=== PATIENT | female | born 2005 | race Caucasian/White ===

== ENCOUNTER 2025-04-30 12:16 | Emergency (ER) | payer MEDICAID, SELFPAY ==
[2025-04-30 13:14] VITALS: BP 120/69; PULSE 97; RESP 18; TEMP 36.4; O2SAT 97; BMI 24.3
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
[2025-04-30 17:16] VITALS: BP 98/54; PULSE 63; RESP 14; TEMP 36.4; O2SAT 98
[2025-04-30 17:33] LABS: Appearance Urine Clear; Color Urine Yellow; Glucose Urine UA Negative (Negative); Leukocyte Esterase Urine Trace (Negative); Nitrite Urine Negative (Negative); Specific Gravity - Urine 1.025 (1.005-1.025); UMIC TRIGGER UACC YES; Urine Blood Negative (Negative); Urine Ketones Trace mg/dL (Negative); Urine Protein Trace mg/dL (Neg-Trace)
[2025-04-30 17:36] LABS: UPreg QC Valid YES; Urine Pregnancy NEGATIVE (NEGATIVE)
[2025-04-30 17:38] LABS: Bacteria Urine None Seen (None Seen); Hyaline Casts Urine 0-2 /LPF (0-2); RBC Urine 0-2 /HPF (0-2); WBC Urine 0-5 /HPF (0-5)
[2025-04-30] MEDS: Bacitracin Oint 0.9 GM PACKET 10 APPL TOPICAL (17:40)
[2025-04-30] MEDS: Acetaminophen 325 MG TABLET 975 MG PO (17:40)
[2025-04-30] MEDS: Diphth,Pertus(ACell),Tet Adult 0.5 ML SYRINGE IM (17:41)
[2025-04-30] MEDS: Ketorolac Tromethamine 15 MG/ML VIAL IM (17:41)
[2025-04-30 17:45] VITALS: BP 98/54; PULSE 63; RESP 14; TEMP 36.4; O2SAT 98
== END 2025-04-30 17:47 | disposition home or self-care (01) ==
PROVIDERS: Physician Assistant Medical; Emergency Provider Emergency Medicine
DX: S70.312A Abrasion, left thigh, initial encounter (principal); S70.311A Abrasion, right thigh, initial encounter; V29.888A Rider (driver) (passenger) of other motorcycle injured in other specified transport accidents, initial encounter; Y93.9 Activity, unspecified; Y92.9 Unspecified place or not applicable; Y99.9 Unspecified external cause status; Z23 Encounter for immunization
CPT/HCPCS: 81001; 81025; 90471; 90715; 96372; 99283; 99284; J1885

== ENCOUNTER 2025-05-30 01:50 | Emergency (ER) | payer MEDICAID, SELFPAY ==
[2025-05-30 01:55] VITALS: BP 115/68; PULSE 112; RESP 19; TEMP 36.8; O2SAT 98; BMI 24.7
[2025-05-30 02:47] LABS: IDNOW Serial# 55D5AD1C; Strep A Nucleic Acid Negative (Negative)
[2025-05-30 03:11] LABS: Resp Syncy Virus RNA Qual PCR NEGATIVE (Negative); SARS COV2 PCR INHOUSE NEGATIVE (Negative)
--- NOTE | 2025-05-30 03:34 | ED_ITS ---
HPI - General Adult General Chief complaint: Upper Respiratory Symptoms Stated complaint: strep Time Seen by Provider: 05/30/25 03:31 Source: patient Limitations: no limitations History of Present Illness ED Provider: Betina Goodwin PA-C HPI narrative: 20-year-old female presents with sore throat x4 days. Associated fatigue and fever. Patient states she has been using Tylenol, NyQuil, saltwater gargles without relief of symptoms. Denies trismus, drooling, swelling inferior to the jawline. Denies risk for STD. Related Data Previous Rx's ?Medication ?Instructions ?Recorded azithromycin 250 mg tablet 250 mg PO DAILY 4 days #4 t abs 05/30/25 Allergies Allergy/AdvReac Type Severity Reaction Status Date / Time amoxicillin (AMOXICILLIN) Allergy Unknown UNKNOWN Verified 05/30/25 01:58 Review of Systems Review of Systems: Yes all other systems are reviewed and are negative Constitutional: Constitutional: Reports fatigue and Reports fever(s) ENT: Reports sore throat and Denies throat swelling Respiratory: Respiratory: Denies cough Endocrine: Endocrine: Reports fatigue Allergic/Immunologic: Allergic/Immunologic: Denies throat swelling PMFSH Past Medical History Attestation statement: The following information was validated with the patient. Social History Social History (System 09/09/23 @ 14:01 by Domitila Bonilla) Smoked in Last 30 Days: No Use of substances other than those prescribed or required for medical reasons: Yes Substance Use Type: Marijuana Substance Use Frequency: Daily Advance Directives: No Advance Directives Information Provided: Yes Do you have a plan to hurt others: No Plan Patient : No Physical Exam ED Vital Signs: Vital Signs - 24 hr 05/30/25 01:55 05/30/25 03:52 Temperature 98.3 F Pulse Rate 112 H Respiratory Rate 19 Blood Pressure 115/68 Pulse Oximetry 98 98 Oxygen Delivery Method Room Air Room Air BMI result Body Mass Index 24.7 Const Other: Alert Orientation/consciousness: patient oriented x3 HENMT Other: Opiate erythematous with diffuse exudate tonsils are prominent uvula midline no sublingual fluctuance, no trismus no drooling, no swelling inferior to the jawline Neck Other: Anterior cervical lymphadenopathy noted Resp Effort & Inspection: normal respiratory effort Cardio Other: Normal peripheral perfusion Skin Other: Warm dry no rash Neuro General: patient oriented x3, gait normal, no focal motor deficits and CN's II- XI intact bilaterally Psych Other: Cooperative Medications Administered Discontinued Medications Generic Name Dose Route Start Last Admin Trade Name Jakeq PRN Reason Stop Dose Admin Al Hydroxide/Mg Hydroxide 30 ml 05/30/25 03:34 05/30/25 03:48 Magnesium Hydrox/Alum Hydrox 30 Ml Oral.Susp PO 05/30/25 03:35 30 ml ONCE ONE Administration Dexamethasone 10 mg 05/30/25 03:34 05/30/25 03:48 Dexamethasone 2 Mg Tablet PO 05/30/25 03:35 10 mg ONCE ONE Administration Lidocaine HCl 15 ml 05/30/25 03:34 05/30/25 03:48 Lidocaine Hcl Viscous 2 % 15 Ml Solution MUCOUS MEM 05/30/25 03:35 15 ml ONCE ONE Administration Medical Decision Making Medical Decision Making [facility] Narrative: 20-year-old female presents with sore throat x4 days. Associated fatigue and fever. Patient states she has been using Tylenol, NyQuil, saltwater gargles without relief of symptoms. Denies trismus, drooling, swelling inferior to the jawline. Denies risk for STD. No chronic issues History: Per patient I have considered the following differential diagnoses: Strep pharyngitis, mononucleosis, STD, viral syndrome Plan: Patient has significant tonsillitis, viral panel and strep screen negative. Adding on a mono spot. She has no risk for STD, I specifically asked if she engages in oral sex, she denies... Giving Maalox lidocaine and a dose of Decadron. To note there were no exam findings consistent with RPA or MUSIC EDUCATOR I have independently reviewed the following tests: Labs: Viral panel negative, strep screen negative, mono spot Lab Data Labs: Lab Results 05/30/25 05/30/25 Range/Units 02:28 03:40 Monoscreen Negative (Negative) Influenza Type A (PCR) NEGATIVE (Negative) Influenza Type B (PCR) NEGATIVE (Negative) RSV RNA Qual (PCR) NEGATIVE (Negative) SARS-CoV-2 RNA (RT-PCR) NEGATIVE (Negative) S. pyogenes GrpA ROQUE Negative (Negative) Discharge Plan Discharge Clinical Impression: Pharyngitis Patient Disposition: Home, Self-Care Instructions: Pharyngitis (ED) Additional Instructions: You were screened for strep throat, that test was negative. You were tested for influenza RSV and COVID. The viral panel was negative. You were tested for mononucleosis, the test was negative. You are being empirically treated for bacterial pharyngitis. See home care instructions. Take the Z-Deion as directed. See home care instructions. You can use warm saltwater gargles to manage your discomfort. You were given a 1 time dose of Decadron, this is a steroid, this will help with the inflammation of the tonsils. Follow up with primary care as needed. Prescriptions: New azithromycin 250 mg tablet 250 mg PO DAILY 4 Days Qty: 4 0RF Rx Instructions: start on day 2 of therapy Print Language: Mozambican
[2025-05-30] MEDS: Magnesium Hydrox/Alum Hydrox 30 ML ORAL.SUSP PO (03:48)
[2025-05-30] MEDS: Lidocaine HCl Viscous 2 % 15 ML SOLUTION MUCOUS MEM (03:48)
[2025-05-30 03:52] VITALS: O2SAT 98
[2025-05-30 04:40] VITALS: BP 126/73; PULSE 95; RESP 18; TEMP 37.1; O2SAT 98
[2025-05-30 04:41] VITALS: BP 126/73; PULSE 95; RESP 18; TEMP 37.1; O2SAT 98
== END 2025-05-30 04:46 | disposition home or self-care (01) ==
PROVIDERS: Physician Assistant Medical; Emergency Provider Emergency Medicine
DX: J02.9 Acute pharyngitis, unspecified (principal); R50.9 Fever, unspecified; Z03.818 Encounter for observation for suspected exposure to other biological agents ruled out
CPT/HCPCS: 36415; 86308; 87637; 87651; 99283; 99284; J8540

== ENCOUNTER 2025-06-01 13:46 | Outpatient (REF) | payer MEDICAID, SELFPAY ==
[2025-06-01 15:59] LABS: Bacterial Vaginosis PCR POSITIVE (Negative); Candida Group PCR NOT DETECTED (Not Detect); Candida glab krusei PCR NOT DETECTED (Not Detect); Trichomonas vaginalis PCR DETECTED (Not Detect)
[2025-06-01 16:29] LABS: CT PCR NOT DETECTED (Not Detect.); NG PCR NOT DETECTED (Not Detect.)
[2025-06-04 19:44] LABS: C. Trachomatis RNA TMA, Throat NOT DETECTED; N. gonorrhoeae RNA TMA, Throat NOT DETECTED
== END 2025-06-01 13:47 | disposition home or self-care (01) ==
LOC: HO.HHCLNP 13:46
PROVIDERS: Visit Provider Pediatrics
DX: R39.9 Unspecified symptoms and signs involving the genitourinary system (principal); Z20.2 Contact with and (suspected) exposure to infections with a predominantly sexual mode of transmission
CPT/HCPCS: 36415; 81515; 87086; 87255; 87491; 87591